=== PATIENT | female | born 1955 | race Caucasian/White ===

== ENCOUNTER 2016-12-27 09:30 | Outpatient (RCR) | payer MEDICARE, MEDICAID, OTHER ==
[~2016-12-27 09:30] MED LIST: AMOXICILLIN 50500 MG PO; AMOXICILLIN 8751 TAB PO; AMOXICILLIN875 MG PO; APIDRAVL SC; ASPIR-LOW81 MG PO; ASPIR-LOX325 MG PO; ASPRIN; ASTELIN NASAL S34 ML NS; AUGMENTIN 875 M1 TAB PO; CEFTIN 250250 MG/TAB PO; CEPHALEXIN500 M1 PO; COZAAR 25MG25 MG/TAB PO; DURICEF; DURICEF PO; DYRENIUM 50MG C50 MG PO; HUMALOG; INSULIN APIDRA; IRON1 CHI PO; LANTUS; LASIX 20MG TABL20 MG PO; MECLIZINE25 M1 PO; METRONIDAZOLE500 MG PO; MOTRIN 600600 MG/TAB PO; NAPROSYN375 MG PO; NORCO 325 MG-51 TAB PO; PENICILLIN V500 MG PO; PHENERGAN 25 TA25 MG PO; POTASSIUM75 MG PO; PRILOSEC 20MG20 MG PO; TRIAMTERENE/HCT1 CAP PO; TUSS PO; VITAMIN C500 MG PO; ZITHROMAX 250M250 MG PO; ZITHROMAX Z PA250 MG PO; ZOFRAN 4MG T4 MG/TAB PO
== END 2017-03-03 | disposition home or self-care (01) ==
LOC: MKS.ESL.PT
DX: M54.2 Cervicalgia (principal)
CPT/HCPCS: G8978-GP; G8979-GP

== ENCOUNTER 2019-02-24 00:19 | Observation (INO) | payer MEDICARE, OTHER, MEDICAID ==
[~2019-02-24] VITALS: Ht 160 cm; Wt 109.9 kg
[~2019-02-24 00:19] MED LIST changes: -INSULIN APIDRA; +INSULIN APIDRA SQ; -IRON1 CHI PO; -LANTUS; +LANTUS100 U/ML IJ; +PROFERRIN ES12 MG PO
[2019-02-24] MEDS ORDERED: FLONASE NASAL S16 GM NS (00:33)
[2019-02-24] MEDS ORDERED: CIPRO 100MG TA100 MG (00:34)
[2019-02-24 01:19] LABS: BASO % 0.1 % (0.0-2.0); EOS # 0.1 (0.0-0.7); EOS % 0.5 % (0-4.0); GRAN # 12.1 (1.4-6.5); GRAN % 82.3 % (42.2-75.2); HEMOGLOBIN 11.6 g/dl (12.5-16.0); LYMPH # 1.2 (1.2-3.4); LYMPH % 8.4 % (20.0-51.0); MEAN CELL VOLUME 94 fl (80.0-100.0); MEAN CORPUSCULAR HEMOGLOBIN 31 pg (27.0-31.0); MEAN CORPUSCULAR HGB CONC 33 g/dl (33.0-37.0); MEAN PLATELET VOLUME 9.9 fl (7.4-10.4); MONO # 1.2 (0.1-0.6); MONO % 8.1 % (1.7-9.3); PLATELET COUNT 226 K/mm3 (130-400); RED BLOOD COUNT 3.76 M/mm3 (4.10-5.30); REDCELL DISTRIBUTION WIDTH-CV 13.2 % (11.5-14.5)
[2019-02-24 01:26] LABS: INR 1.2 (0.8-3.0); PROTHROMBIN TIME 13.3 SECONDS (9.7-12.8)
[2019-02-24 01:27] LABS: HEMATOCRIT 35.5 % (37.0-47.0)
[2019-02-24 01:30] LABS: ALANINE AMINOTRANSFERASE 14 U/L (9-52); ALBUMIN 3.5 gm/dL (3.5-5.0); ALKALINE PHOSPHATASE 83 U/L (50-136); ANION GAP 10 mmol/L (7-16); AST,SGOT 33 U/L (15-37); BILIRUBIN,TOTAL 0.6 mg/dL (0.0-1.0); BLOOD UREA NITROGEN 27 mg/dL (7-17); CALCIUM 8.7 mg/dL (8.4-10.2); CARBON DIOXIDE 27 mmol/L (22-30); CHLORIDE 96 mmol/L (98-107); CREATININE, serum 1.08 (0.52-1.25); GLUCOSE 71 mg/dL (74-106); POTASSIUM 3.2 mmol/L (3.4-5.0); SODIUM 134 mmol/L (137-145); TOTAL PROTEIN 7.1 gm/dL (6.4-8.2)
[2019-02-24 01:42] LABS: TROPONIN-I < 0.012 ng/mL (0.000-0.035)
[2019-02-24 03:48] VITALS: BP 137/40; PULSE 63; TEMP 97.6
--- NOTE | 2019-02-24 04:00 | NUR ---
Pt to floor from ER via stretcher. No distress noted. Pt scoots to bed independently and sits in bed with HOB elevated. Pt denies pain. VSS. CBG WNL at 137. Resp even and unlabored. Lungs clear. BS+. Edema noted to BLE. R knee and lower leg are reddened and warm. No needs noted at this time.
--- NOTE | 2019-02-24 05:55 | NUR ---
Pt sleeping. Easily arousable. No distress noted. Pt has not voided since arrival to medical floor. Pt aware that we need to collect UA. No needs at this time.
[2019-02-24 06:46] LABS: BASO % 0.1 % (0.0-2.0); EOS % 0.1 % (0-4.0); GRAN # 12.6 (1.4-6.5); GRAN % 87.6 % (42.2-75.2); HEMOGLOBIN 11.1 g/dl (12.5-16.0); MEAN CELL VOLUME 95 fl (80.0-100.0); MEAN CORPUSCULAR HEMOGLOBIN 31 pg (27.0-31.0); MEAN CORPUSCULAR HGB CONC 32 g/dl (33.0-37.0); MEAN PLATELET VOLUME 10.1 fl (7.4-10.4); MONO # 0.7 (0.1-0.6); MONO % 4.6 % (1.7-9.3); PLATELET COUNT 205 K/mm3 (130-400); RED BLOOD COUNT 3.62 M/mm3 (4.10-5.30); REDCELL DISTRIBUTION WIDTH-CV 13.3 % (11.5-14.5)
[2019-02-24 06:55] LABS: CALCIUM 8.1 mg/dL (8.4-10.2); CREATININE, serum 0.84 (0.52-1.25); POTASSIUM 4.3 mmol/L (3.4-5.0)
[2019-02-24 07:15] LABS: HEMATOCRIT 34.4 % (37.0-47.0)
--- NOTE | 2019-02-24 07:27 | NUR ---
REPORT RECEIVED FROM CHRISTOS HERNANDEZ. PT SLEEPING SOUNDLY IN BED. CALL LIGHT IN REACH. PT'S FAMILY SUPPOSED TO BRING IN HER OWN INSULIN FROM HOME TODAY PER REPORT.
--- NOTE | 2019-02-24 08:05 | NUR ---
Pt awake and resting in bed alert and oriented. Pt denied pain. Pt's daughter brought in Apidra from home. Pharmacy called in to label it, so pt can use it from this AM. Call light in reach.
[2019-02-24 08:39] VITALS: BP 118/31; PULSE 63; TEMP 97.8
--- NOTE | 2019-02-24 09:10 | NUR ---
Pt's daughter visiting her in . Pt denied pain and ambulated to bathrm and back to her bed. Call light in reach.
[2019-02-24 09:24] LABS: COLLECTION METHOD CLEAN CATCH
[2019-02-24 09:42] LABS: PH 5 (5-8); SQUAMOUS EPITHELIAL 0-2 /hpf; URINE APPEARANCE Clear; URINE BACTERIA None Seen /hpf; URINE BILIRUBIN Negative (NEGATIVE); URINE BLOOD Negative (NEGATIVE); URINE COLOR Yellow; URINE GLUCOSE 1+ (NEGATIVE); URINE KETONE Trace (NEGATIVE); URINE LEUKOCYTE ESTERASE Negative (NEGATIVE); URINE NITRATE Negative (NEGATIVE); URINE PROTEIN(semi-quant) Negative (NEGATIVE); URINE RBC 0-2 /hpf; URINE UROBILINOGEN Negative (NEGATIVE)
--- NOTE | 2019-02-24 10:18 | NUR ---
Pt resting in bed comfortably. Call light in reach.
--- NOTE | 2019-02-24 10:39 | NUR ---
First visit from the expert medical writer. No needs right now.
--- NOTE | 2019-02-24 11:08 | NUR ---
SHANELL met with the patient to discuss a discharge plan. The patient lives in [place] with her daughter and granddaughters. The patient has a cane and a walker and reports independence with ADLs. The patient's PCP is Dr. Piotr Olson and the patient receives her medications on [place]. The patient does not have advanced directives in the EMR and she was not interested in obtaining a DPOA-HC form at this time. The patient plans to return home upon discharge. There are no additional needs at this time.
[2019-02-24 11:20] VITALS: BP 116/26; PULSE 66; TEMP 98.1
--- NOTE | 2019-02-24 11:27 | NUR ---
Pt resting in bed comfortably. Pt denied pain. Pt's daughter visiting in rm. Call light in reach.
[2019-02-24 11:32] VITALS: BP 130/61; PULSE 68; TEMP 98.1
--- NOTE | 2019-02-24 13:28 | NUR ---
Pt's resting in bed comfortably and waiting for lunch to be delievered. Call light in reach.
[2019-02-24 15:58] VITALS: BP 107/28; PULSE 60; TEMP 98.4
--- NOTE | 2019-02-24 16:17 | NUR ---
Pt resting in bed comfortably and talking to pt's family. Dr. Miller is planning to discharge pt today. Pt and family noted. Pt's insulin given back to pt's daughter to take back home. Call light in reach.
[2019-02-24] MEDS ORDERED: INSULIN APIDRA SQ (16:55)
[2019-02-24] MEDS ORDERED: ZOFRAN ODT4 MG PO (16:57)
--- NOTE | 2019-02-24 18:00 | NUR ---
Pt went over discharge instruction and able to verbalize understanding of dc instruction. Pt noted she shouldn't take insulin if her BG is lower than 150. She's going to see her PCP and conservation educator next week. Pt's getting dressed and her daughter is on the way to pick pt up.
== END 2019-02-24 18:25 | disposition home or self-care (01) ==
LOC: COL.ER 00:19 → MEDICAL 02:41
PROVIDERS: Emergency Medicine; Nurse Practitioner; ADMIT Internal Medicine
DX: E11.649 Type 2 diabetes mellitus with hypoglycemia without coma (principal); I10 Essential (primary) hypertension; D64.9 Anemia, unspecified; K21.9 Gastro-esophageal reflux disease without esophagitis; N39.0 Urinary tract infection, site not specified; J32.9 Chronic sinusitis, unspecified; Z90.710 Acquired absence of both cervix and uterus; Z79.4 Long term (current) use of insulin; Z87.891 Personal history of nicotine dependence; Z88.2 Allergy status to sulfonamides; Z88.5 Allergy status to narcotic agent; Z91.018 Allergy to other foods
CPT/HCPCS: A4216; G0378; J0696; J1644; J1815; J3480; J7030

== ENCOUNTER → 2021-07-06 | Outpatient (CLI) | payer MEDICARE, OTHER, MEDICAID ==
[2009-08-30 23:17] VITALS: BP 141/68
[~2021-07-06] MED LIST changes: +ALDACTONE 25MG25 M1 PO; +ALLEGRA 180MG180 MG PO; +APIDRAVL SQ; +CIPRO 100MG TA100 MG; +COZAAR 50MG50 MG/TAB PO; +FERROUSAL325 MG PO; +FLONASE NASAL S16 GM NS; +LASIX 40MG TABL40 MG PO; +PRAVACHOL 40MG40 MG PO; +SINGULAIR 110 MG/TAB PO; +ZOFRAN ODT4 MG PO
[2021-07-06 11:54] VITALS: BP 172/66; PULSE 67; TEMP 99
[2021-07-06 13:25] VITALS: BP 132/68; PULSE 69
[2021-07-06 13:30] VITALS: BP 146/62; PULSE 67
[2021-07-06 13:45] VITALS: BP 133/96; PULSE 65
== END ==
LOC: COL.RAD 11:38
DX: M21.921 Unspecified acquired deformity of right upper arm (principal); M87.9 Osteonecrosis, unspecified; M75.101 Unspecified rotator cuff tear or rupture of right shoulder, not specified as traumatic
CPT/HCPCS: J2704

== ENCOUNTER → 2022-04-30 | Outpatient (CLI) | payer MEDICARE, OTHER, MEDICAID ==
[2022-04-30 12:08] LABS: BASO % 0.3 % (0.0-2.0); EOS # 0.1 K/mm3 (0.0-0.7); GRAN # 5.8 K/mm3 (1.4-6.5); GRAN % 75.8 % (42.2-75.2); LYMPH # 1.1 K/mm3 (1.2-3.4); LYMPH % 14.2 % (20.0-51.0); MEAN CELL VOLUME 93 fl (80.0-100.0); MEAN CORPUSCULAR HEMOGLOBIN 30 pg (27-31); MEAN CORPUSCULAR HGB CONC 32 g/dl (33.0-37.0); MEAN PLATELET VOLUME 9.1 fl (7.4-10.4); MONO # 0.6 K/mm3 (0.1-0.6); MONO % 8.3 % (1.7-9.3); PLATELET COUNT 380 K/mm3 (130-400); RED BLOOD COUNT 3.65 M/mm3 (4.10-5.30); REDCELL DISTRIBUTION WIDTH-CV 17.2 % (11.5-14.5)
[2022-04-30 12:09] LABS: HEMATOCRIT 34.1 % (37.0-47.0)
[2022-04-30 12:27] LABS: ALBUMIN 3.2 gm/dL (3.4-4.8); ALKALINE PHOSPHATASE 143 U/L (40-150); ANION GAP 11 mmol/L (7-16); AST,SGOT 13 U/L (5-34); BILIRUBIN,TOTAL 0.5 mg/dL (0.2-1.2); BLOOD UREA NITROGEN 8 mg/dL (10-20); CALCIUM 9.2 mg/dL (8.4-10.2); CARBON DIOXIDE 27 mmol/L (23-31); CHLORIDE 98 mmol/L (98-107); CREATININE, serum 0.77 mg/dL (0.57-1.11); GLUCOSE 70 mg/dL (70-99); POTASSIUM 3.9 mmol/L (3.5-4.5); SODIUM 136 mmol/L (136-145); TOTAL PROTEIN 7.2 gm/dL (6.2-8.1)
[2022-04-30 12:30] LABS: ALANINE AMINOTRANSFERASE < 6 U/L (0-55); LIPASE < 4 U/L (8-78)
== END ==
LOC: COL.LAB 11:45
PROVIDERS: Family Medicine
DX: R11.0 Nausea (principal); R10.10 Upper abdominal pain, unspecified

== ENCOUNTER → 2022-05-04 | Outpatient (CLI) | payer MEDICARE, OTHER, MEDICAID | LOC: COL.RAD 09:18 | DX: S22.089A Unspecified fracture of T11-T12 vertebra, initial encounter for closed fracture (principal); M54.50 Low back pain, unspecified; X58.XXXA Exposure to other specified factors, initial encounter | CPT/HCPCS: A9503 ==

== ENCOUNTER → 2023-08-24 | Outpatient (CLI) | payer MEDICARE, MEDICAID ==
[~2023-08-24] MED LIST changes: +ASPI325T6 PO; +ASPIRIN E.C. 8181 MG PO; +B-121000 MCG PO; +BENADRYL25 M2 PO; +DESENEX TP; -LANTUS100 U/ML IJ; +LANTUS100 U/ML SQ; +NOVOLOG 100U100 U/M1 SQ; +ROCEPHIN 2GM VIAL21 IJ; +ULTRAM 50MG TAB50 MG PO; +ZYRTEC 10MG10 MG PO
[2023-08-24 17:11] LABS: BASO % 0.4 % (0.0-2.0); EOS # 0.2 K/mm3 (0.0-0.7); EOS % 4.1 % (0.0-4.0); GRAN # 3.5 K/mm3 (1.4-6.5); GRAN % 68.1 % (42.2-75.2); LYMPH # 0.9 K/mm3 (1.2-3.4); LYMPH % 17.9 % (20.0-51.0); MEAN CELL VOLUME 93 fl (80.0-100.0); MEAN CORPUSCULAR HGB CONC 31 g/dl (33.0-37.0); MEAN PLATELET VOLUME 9.9 fl (7.4-10.4); MONO # 0.5 K/mm3 (0.1-0.6); MONO % 9.3 % (1.7-9.3); PLATELET COUNT 273 K/mm3 (130-400); RED BLOOD COUNT 2.72 M/mm3 (4.10-5.30)
[2023-08-24 17:12] LABS: HEMATOCRIT 25.2 % (37.0-47.0); HEMOGLOBIN 7.9 g/dl (12.5-16.0); MEAN CORPUSCULAR HEMOGLOBIN 29 pg (27-31)
[2023-08-24 17:30] LABS: CALCIUM 8.1 mg/dL (8.4-10.2); CREATININE, serum 0.85 mg/dL (0.57-1.11); POTASSIUM 4.2 mmol/L (3.5-4.5)
== END ==
LOC: COL.LAB 16:48
PROVIDERS: Student in an Organized Health Care Education/Training Program
DX: E10.42 Type 1 diabetes mellitus with diabetic polyneuropathy (principal); R06.02 Shortness of breath

== ENCOUNTER 2024-01-13 08:43 | Day surgery (SDC) | payer MEDICARE, MEDICAID ==
[~2024-01-13] VITALS: Ht 161.3 cm; Wt 75.6 kg
[~2024-01-13 08:43] MED LIST changes: +NS 1,000 ML IV SCH; +Ondansetron 4 MG/2 ML VIAL IV PRN
[2024-01-13 09:55] VITALS: BP 123/46; PULSE 72; TEMP 97.7
[2024-01-13] MEDS ORDERED: LASIX 40MG TABL40 MG PO (10:22)
[2024-01-13] MEDS ORDERED: VOLTAREN GEL 1%1 TU TP (10:27)
[2024-01-13] MEDS ORDERED: FLONASEALLERGY NS (10:28)
[2024-01-13] MEDS ORDERED: DURICEF 500MG500 MG PO (10:28)
[2024-01-13] MEDS ORDERED: FOSAMAX 70MG TA70 MG PO (10:29)
[2024-01-13] MEDS ORDERED: MASON NATURAL2000 IU PO (10:30)
--- NOTE | 2024-01-13 10:34 | NUR ---
The patient was brought back to [facility] via wheelchair escorted by her grand daughter at this time. The patient ambulated from the wheelchair to the recliner in her room with the stand by assistance of the nurse and appeared to tolerate the activity well. Vital signs obtained. Consent signed. 22G IV started in right hand with NS infusing without difficulty. Blood sugar obtained with a result of 148. Warm blankets provided. Call light is within reach. Denies any further needs at this time.
[2024-01-13] MEDS ORDERED: Lidocaine PF 2% (20 MG/ML) 5 ML VIAL ONE (11:15)
[2024-01-13 11:40] VITALS: BP 135/52; PULSE 74; TEMP 97
--- NOTE | 2024-01-13 11:40 | NUR ---
PATIENT RETURNS TO ROOM 6 VIA CART. ASSIST X 2 TO CHAIR. VITAL SIGNS WNL. GRANDAUGHTER AT BEDSIDE. PATIENT REQUESTS COFFEE AND JELLO. CALL LIGHT WITHIN REACH. WILL CONTINUE TO MONITOR.
[2024-01-13 11:55] VITALS: BP 156/55; PULSE 69
--- NOTE | 2024-01-13 11:55 | NUR ---
PATIENT IS DOING WELL. DENIES ANY NAUSEA AFTER EATING OR DRINKING. VITAL SIGNS WNL. IV DISCONTINUED. PHYSICIAN AT BEDSIDE. WILL CONTINUE TO MONITOR.
[2024-01-13 12:08] VITALS: BP 101/65; PULSE 68
--- NOTE | 2024-01-13 12:08 | NUR ---
PATIENT IS READY FOR DISCHARGE. DISCHARGE INSTRUCTIONS REVIEWED WITH PATIENT AND HER GRANDAUGHTER. VITAL SIGNS WNL. WILL DISCHARGE ONCE PATIENT IS DRESSED AND READY.
== END 2024-01-13 12:23 | disposition home or self-care (01) ==
LOC: SDCO 08:43
DX: K21.00 Gastro-esophageal reflux disease with esophagitis, without bleeding (principal); K44.9 Diaphragmatic hernia without obstruction or gangrene; K29.30 Chronic superficial gastritis without bleeding; D50.8 Other iron deficiency anemias; E66.01 Morbid (severe) obesity due to excess calories; Z68.41 Body mass index [BMI] 40.0-44.9, adult
CPT/HCPCS: J2704; J7030